=== PATIENT | male | born 1970 | race Caucasian/White ===

== ENCOUNTER 2016-11-04 20:21 | Emergency (ER) | payer OTHER ==
--- NOTE | 2016-11-04 20:55 | ED ORDER SUMMARY ---
..... Patient: CAPRICE LANCASTER OrderSheet [facility] VisitID: [id number] [address] [place] [address] 46y, M Registration Date/Time: 11/04/2016 ORDER SHEET Weight: 77.1 kg (stated) Allergies: No Known Drug Allergy GENERAL ORDERS: MEDICATION ORDERS: Bactrim DS PO (Tablet 800-160 mg) 1 tab (NOW) (20:36 11/04/2016 Eric A.R.N.P.) (Ack 20:39 Antonis R.N.) (21:06 Antonis R.N.) IV FLUIDS: ORDER SHEET NOTES: [Electronically signed by Mariposa Nicole R.N. (21:28 11/04/2016)] [Electronically signed by Sherice CastilloR.N.PDominick (21:36 11/04/2016)] [Electronically locked/signed by Mariposa Nicole R.N. (21:28 11/04/2016)]
--- NOTE | 2016-11-04 20:55 | ED CLINICAL REPORT ---
Clinical Report - Physicians/Mid Levels [facility] [address] [place] [address] 11/04/2016 20:23 Patient: CAPRICE LANCASTER Time Seen: 20:33. Arrived- By private vehicle. Historian- patient. HISTORY OF PRESENT ILLNESS Chief Complaint: TENDER AREA. This started today and is still present. It is described as painful. It has been located on the back. No cause has been identified. No recent insect bite. Similar symptoms previously: Once. Recent medical care: Not recently seen/assessed. REVIEW OF SYSTEMS No fever, chills or enlarged lymph nodes. PAST HISTORY See nurses notes. No history of hypertension or diabetes mellitus. Tetanus immunization status is up-to-date. Surgeries: Appendectomy. (R thumb). SOCIAL HISTORY Light tobacco smoker (cigarette)- less than 1/2 a pack per day. No alcohol use or drug use. ADDITIONAL NOTES The nursing notes have been reviewed. PHYSICAL EXAM Vital Signs: 11/04/2016 20:29 BP: 150/96. HR: 74. RR: 18. O2 saturation: 100%. Temp: 97.7 F. Pain level now: 3/10. Have been reviewed and appear to be correct. Appearance: Alert. Oriented X3. No acute distress. Eyes: Pupils equal, round and reactive to light. Conjunctivae and eyelids normal. Neck: Neck supple. No lymphadenopathy or meningeal signs. CVS: Normal heart rate and rhythm. Respiratory: No respiratory distress. Skin: Skin warm and dry. Normal skin color. Normal skin turgor. Single small tender indurated area with cellulitis to the back. No fluctuance, pointing or drainage. Neuro: Oriented X 3. PROGRESS AND PROCEDURES Incision & Drainage of Abscess: The abscess is located in the back. The risks of the procedure, benefits and alternatives were explained. Consent was obtained. Local anesthesia provided using 1% lidocaine with epi. Skin cleansed with Betadine. The abscess was incised with a #11 surgical blade. Cavity was irrigated with saline and packed with gauze. A dressing was applied. ( Minimal pus-more serosang drainage. Bleeding resolved w/pressure. Packed w/ 1/4" gauze. Pressure dressing applied.). Course of Care: Bactrim DSx1 Referred to surgeon in the event that this does not resolve. Patient is stable. Patient counseled in person regarding the patient's condition, diagnosis and need for follow-up. Disposition: Discharged. Condition: stable. CLINICAL IMPRESSION Cellulitis of the back. INSTRUCTIONS Do not work (Sunday). (Work note for Sunday (if needed)). Warnings: GENERAL WARNINGS: Return or contact your physician immediately if your condition worsens or changes unexpectedly, if not improving as expected, or if other problems arise. Prescription Medications: Bactrim DS 800 mg / 160 mg: take 1 tablet orally every 12 hours for 5 days. No refill. Follow-up: Follow up with a surgeon if not better. Follow up with your doctor in about two days for wound check. Understanding of the discharge instructions verbalized by patient. Follow-up with: Kyle Arthur MD, General Surgeon, , [facility], [address] [place] [address] Follow up in two days if not better. Summary of care provided to patient via paper. (Electronically signed by Sherice Castillo A.R.N.P. 11/04/2016 21:36)
--- NOTE | 2016-11-04 20:55 | ED NURSING NOTES ---
Clinical Report - Nurses [facility] [address] [place] [address] 11/04/2016 20:23 Patient: CAPRICE LANCASTER TRIAGE Triage time 20:30 Nov 04 2016. Acuity: LEVEL 4. Chief Complaint: TENDER AREA and . raised area left lateral to Cspine. 20:34 11/04/16. SEPSIS SCREEN: Sepsis Screen. Negative (no infection suspected/documented). SINDI COMA SCORE: Sindi Coma Scale: 15- eyes open spontaneously (4); best verbal response- oriented x 4 (5); best motor response- obeys commands (6). --20:34 Mariposa Nicole R.N. 20:29 11/04/16. BP: 150/96 (regular adult cuff) taken on the left arm. HR: 74. RR: 18. O2 saturation: 100% on room air. Temp: 97.7 F (oral). Pain level now: 08/11. --20:34 Mariposa Nicole R.N. Weight: 77.1 kg stated. Height/Length: 69 inches Per Patient. BMI: 25.1. --20:33 Mariposa Nicole R.N. Medications None. --20:31 Mariposa Nicole R.N. Allergies No Known Drug Allergy. --20:31 Mariposa Nicole R.N. History Arrived by private vehicle. Historian: patient. Location - upper back. This started today. It is described as itchy and burning. He has had muscle aches. Treatment RESEARCH PROGRAM INTERNSHIP: None. SOCIAL HX: Light tobacco smoker (cigarette)- less than 1/2 a pack per day. No alcohol use or drug use. No infectious disease exposure. ABUSE ASSESSMENT: No report of abuse. SELF HARM ASSESSMENT: A self harm assessment was performed. The patient answered "no" to the question "Have you recently felt down, depressed, or hopeless?", "Have you noticed less interest or pleasure in doing things?", "Do you have thoughts of harming or killing yourself?", "Are you here because you tried to hurt yourself?", "Have you ever tried to hurt yourself before today?", "Have you recently had thoughts about harming or killing others?" and "Do you have any dangerous items in your possession?". The patient reports their behavior. --20:34 Mariposa Nicole R.N. PROBLEMS: Laceration. Paresthesia. Upper Extremity Pain. --20:31 Mariposa Nicole R.N. ADDITIONAL SURGERIES: Appendectomy. Right thumb surgery . --20:31 Mariposa Nicole R.N. Interventions ID band on patient. To treatment room. --20:34 Mariposa Nicole R.N. PHYSICAL ASSESSMENT 20:34 11/04/16. Ambulatory to room. Patient gowned. GENERAL / NEURO / PSYCH: Alert. The patient does not appear to be in acute distress. Oriented X 4. HEENT: Pupils equal, round and reactive to light. Mucous membranes are pink. RESPIRATORY: Respirations not labored. Breath sounds within normal limits. CVS: Capillary refill less than 2 seconds. Pulses within normal limits. GI / : Abdomen nontender. SKIN: Skin is intact, warm and non-tender. Normal skin turgor. No skin rash. --20:34 Mariposa Nicole R.N. NURSING PROGRESS NOTES 20:34 11/04/16. The plan of care for this patient has been created. Patient gowned. Head of bed elevated. Reassurance given. Two patient identifiers checked. Call light placed in reach. Side rails up x 1. Bed placed in lowest position. Brakes of bed on. Patient ready for evaluation- chart flagged and PA notified. --20:34 Mariposa Nicole R.N. ( Lac cart set outside room, patient laying flat on stomach prepped for drainage of abcess, lido with epi at bedside.). --20:41 Mariposa Nicole R.N. ( Doctor in with patient for drainage). --20:41 Mariposa Nicole R.N. 21:06 11/04/2016 Bactrim DS (Sulfamethoxazole-TMP DS) PO Tablets 1 tab given. Allergies verified and confirmed 5 rights. --21:06 Mariposa Nicole R.N. DISPOSITION / DISCHARGE late entry - 21:09 11/04/16. Departure time: 21:10 Nov 04 2016. Condition at departure: improved. No learning barriers present. Discharge instructions provided and reviewed with the patient. Reviewed medication(s) side effects, precautions, dosing and course information. Prescription(s) given to the patient. Work note given. Written instructions provided in Setswana. The patient was discharged by the physician integration assistant. He was discharged home. He left the Emergency Department ambulatory and via private vehicle. Thickener Operator driving. --21:26 Mariposa Nicole R.N. 21:24 11/04/16. BP: 157/96 (regular adult cuff) taken on the right arm, while sitting. HR: 83. RR: 16. O2 saturation: 98% on room air. Temp: 97.7 F (oral). Pain level now: 0/10. --21:26 Mariposa Nicole R.N. Locked/Released at 11/04/2016 21:29 by Mariposa Nicole R.N.
--- NOTE | 2016-11-04 20:55 | ED CLINICAL REPORT ---
Clinical Report - Physicians/Mid Levels [facility] [address] [address] 11/04/2016 20:23 Patient: CAPRICE LANCASTER Time Seen: 20:33. Arrived- By private vehicle. Historian- patient. HISTORY OF PRESENT ILLNESS Chief Complaint: TENDER AREA. This started today and is still present. It is described as painful. It has been located on the back. No cause has been identified. No recent insect bite. Similar symptoms previously: Once. Recent medical care: Not recently seen/assessed. REVIEW OF SYSTEMS No fever, chills or enlarged lymph nodes. PAST HISTORY See nurses notes. No history of hypertension or diabetes mellitus. Tetanus immunization status is up-to-date. Surgeries: Appendectomy. (R thumb). SOCIAL HISTORY Light tobacco smoker (cigarette)- less than 1/2 a pack per day. No alcohol use or drug use. ADDITIONAL NOTES The nursing notes have been reviewed. PHYSICAL EXAM Vital Signs: 11/04/2016 20:29 BP: 150/96. HR: 74. RR: 18. O2 saturation: 100%. Temp: 97.7 F. Pain level now: 3/10. Have been reviewed and appear to be correct. Appearance: Alert. Oriented X3. No acute distress. Eyes: Pupils equal, round and reactive to light. Conjunctivae and eyelids normal. Neck: Neck supple. No lymphadenopathy or meningeal signs. CVS: Normal heart rate and rhythm. Respiratory: No respiratory distress. Skin: Skin warm and dry. Normal skin color. Normal skin turgor. Single small tender indurated area with cellulitis to the back. No fluctuance, pointing or drainage. Neuro: Oriented X 3. PROGRESS AND PROCEDURES Incision & Drainage of Abscess: The abscess is located in the back. The risks of the procedure, benefits and alternatives were explained. Consent was obtained. Local anesthesia provided using 1% lidocaine with epi. Skin cleansed with Betadine. The abscess was incised with a #11 surgical blade. Cavity was irrigated with saline and packed with gauze. A dressing was applied. ( Minimal pus-more serosang drainage. Bleeding resolved w/pressure. Packed w/ 1/4" gauze. Pressure dressing applied.). Course of Care: Bactrim DSx1 Referred to surgeon in the event that this does not resolve. Patient is stable. Patient counseled in person regarding the patient's condition, diagnosis and need for follow-up. Disposition: Discharged. Condition: stable. CLINICAL IMPRESSION Cellulitis of the back. INSTRUCTIONS Do not work (Sunday). (Work note for Sunday (if needed)). Warnings: GENERAL WARNINGS: Return or contact your physician immediately if your condition worsens or changes unexpectedly, if not improving as expected, or if other problems arise. Prescription Medications: Bactrim DS 800 mg / 160 mg: take 1 tablet orally every 12 hours for 5 days. No refill. Follow-up: Follow up with a surgeon if not better. Follow up with your doctor in about two days for wound check. Understanding of the discharge instructions verbalized by patient. Follow-up with: Kyle Arthur MD, General Surgeon, , [facility], [address] [place] [address] Follow up in two days if not better. Summary of care provided to patient via paper. (Electronically signed by Sherice Castillo A.R.N.P. 11/04/2016 21:36)
--- NOTE | 2016-11-04 20:55 | ED ORDER SUMMARY ---
..... Patient: CAPRICE LANCASTER OrderSheet [facility] VisitID: [id number] [address] [place] [address] 46y, M Registration Date/Time: 11/04/2016 ORDER SHEET Weight: 77.1 kg (stated) Allergies: No Known Drug Allergy GENERAL ORDERS: MEDICATION ORDERS: Bactrim DS PO (Tablet 800-160 mg) 1 tab (NOW) (20:36 11/04/2016 Eric A.R.N.P.) (Ack 20:39 Antonis R.N.) (21:06 Antonis R.N.) IV FLUIDS: ORDER SHEET NOTES: [Electronically signed by Mariposa Nicole R.N. (21:28 11/04/2016)] [Electronically signed by Sherice CastilloR.N.PDominick (21:36 11/04/2016)] [Electronically locked/signed by Mariposa Nicole R.N. (21:28 11/04/2016)]
--- NOTE | 2016-11-04 20:55 | ED NURSING NOTES ---
Clinical Report - Nurses [facility] [address] [place] [address] 11/04/2016 20:23 Patient: CAPRICE LANCASTER TRIAGE Triage time 20:30 Nov 04 2016. Acuity: LEVEL 4. Chief Complaint: TENDER AREA and . raised area left lateral to Cspine. 20:34 11/04/16. SEPSIS SCREEN: Sepsis Screen. Negative (no infection suspected/documented). SINDI COMA SCORE: Sindi Coma Scale: 15- eyes open spontaneously (4); best verbal response- oriented x 4 (5); best motor response- obeys commands (6). --20:34 Mariposa Nicole R.N. 20:29 11/04/16. BP: 150/96 (regular adult cuff) taken on the left arm. HR: 74. RR: 18. O2 saturation: 100% on room air. Temp: 97.7 F (oral). Pain level now: 08/11. --20:34 Mariposa Nicole R.N. Weight: 77.1 kg stated. Height/Length: 69 inches Per Patient. BMI: 25.1. --20:33 Mariposa Nicole R.N. Medications None. --20:31 Mariposa Nicole R.N. Allergies No Known Drug Allergy. --20:31 Mariposa Nicole R.N. History Arrived by private vehicle. Historian: patient. Location - upper back. This started today. It is described as itchy and burning. He has had muscle aches. Treatment FOOD ADVISER: None. SOCIAL HX: Light tobacco smoker (cigarette)- less than 1/2 a pack per day. No alcohol use or drug use. No infectious disease exposure. ABUSE ASSESSMENT: No report of abuse. SELF HARM ASSESSMENT: A self harm assessment was performed. The patient answered "no" to the question "Have you recently felt down, depressed, or hopeless?", "Have you noticed less interest or pleasure in doing things?", "Do you have thoughts of harming or killing yourself?", "Are you here because you tried to hurt yourself?", "Have you ever tried to hurt yourself before today?", "Have you recently had thoughts about harming or killing others?" and "Do you have any dangerous items in your possession?". The patient reports their behavior. --20:34 Mariposa Nicole R.N. PROBLEMS: Laceration. Paresthesia. Upper Extremity Pain. --20:31 Mariposa Nicole R.N. ADDITIONAL SURGERIES: Appendectomy. Right thumb surgery . --20:31 Mariposa Nicole R.N. Interventions ID band on patient. To treatment room. --20:34 Mariposa Nicole R.N. PHYSICAL ASSESSMENT 20:34 11/04/16. Ambulatory to room. Patient gowned. GENERAL / NEURO / PSYCH: Alert. The patient does not appear to be in acute distress. Oriented X 4. HEENT: Pupils equal, round and reactive to light. Mucous membranes are pink. RESPIRATORY: Respirations not labored. Breath sounds within normal limits. CVS: Capillary refill less than 2 seconds. Pulses within normal limits. GI / : Abdomen nontender. SKIN: Skin is intact, warm and non-tender. Normal skin turgor. No skin rash. --20:34 Mariposa Nicole R.N. NURSING PROGRESS NOTES 20:34 11/04/16. The plan of care for this patient has been created. Patient gowned. Head of bed elevated. Reassurance given. Two patient identifiers checked. Call light placed in reach. Side rails up x 1. Bed placed in lowest position. Brakes of bed on. Patient ready for evaluation- chart flagged and PA notified. --20:34 Mariposa Nicole R.N. ( Lac cart set outside room, patient laying flat on stomach prepped for drainage of abcess, lido with epi at bedside.). --20:41 Mariposa Nicole R.N. ( Doctor in with patient for drainage). --20:41 Mariposa Nicole R.N. 21:06 11/04/2016 Bactrim DS (Sulfamethoxazole-TMP DS) PO Tablets 1 tab given. Allergies verified and confirmed 5 rights. --21:06 Mariposa Nicole R.N. DISPOSITION / DISCHARGE late entry - 21:09 11/04/16. Departure time: 21:10 Nov 04 2016. Condition at departure: improved. No learning barriers present. Discharge instructions provided and reviewed with the patient. Reviewed medication(s) side effects, precautions, dosing and course information. Prescription(s) given to the patient. Work note given. Written instructions provided in Yoruba. The patient was discharged by the physician assistant professor sculpture. He was discharged home. He left the Emergency Department ambulatory and via private vehicle. Mower Mechanic driving. --21:26 Mariposa Nicole R.N. 21:24 11/04/16. BP: 157/96 (regular adult cuff) taken on the right arm, while sitting. HR: 83. RR: 16. O2 saturation: 98% on room air. Temp: 97.7 F (oral). Pain level now: 0/10. --21:26 Mariposa Nicole R.N. Locked/Released at 11/04/2016 21:29 by Mariposa Nicole R.N.
--- NOTE | 2016-11-04 21:36 | ED DISCHARGE INSTRUCTIONS ---
Patient: CAPRICE LANCASTER General Instructions [facility] VisitID: [id number] [place] [address] 46y, M Registration Date/Time: 11/04/2016 Cellulitis of the back. INSTRUCTIONS Do not work (Sunday). (Work note for Sunday (if needed)). Warnings: GENERAL WARNINGS: Return or contact your physician immediately if your condition worsens or changes unexpectedly, if not improving as expected, or if other problems arise. Prescription Medications: Bactrim DS 800 mg / 160 mg: take 1 tablet orally every 12 hours for 5 days. No refill. Follow-up: Follow up with a surgeon if not better. Follow up with your doctor in about two days for wound check. Understanding of the discharge instructions verbalized by patient. Follow-up with: Kyle Arthur MD, General Surgeon, , [facility], [address] [place] [address] Follow up in two days if not better. Summary of care provided to patient via paper. ADDITIONAL INFORMATION Cellulitis You have an infection of the skin known as cellulitis. This usually starts with a scrape, cut, insect bite, blister or other opening in the skin which becomes infected. This is a serious condition. It must be watched closely to be sure the infection is not spreading. With antibiotic treatment, the size of the red area will gradually shrink in size until the skin returns to normal. This will take 7-10 days. The red area should never increase in size once the antibiotic medicine has been started. Occasionally, an infection will be resistant to one antibiotic and another one will have to be used. Home Care: 1) Limit the use of the affected part, since excess movement can cause the infection to spread. 2) If the infection is on your leg, walk as little as possible during the first few days of the treatment. Keep your leg elevated while sitting. This will reduce swelling. 3) Take all of the antibiotic medicine exactly as directed until it is gone. Be careful not to miss any doses, especially during the first seven days. Follow Up with your doctor or this facility as directed. Check the infected area daily for the warning signs listed below. Get Prompt Medical Attention if any of the following occur: -- Spreading area of redness -- Increasing swelling or pain -- Appearance of pus or drainage -- Fever over 100.4 F (38.0 C) oral, or over 101.4 F (38.6 C) rectal, after two days on antibiotics You have been given the following additional information: Cellulitis Do not work (Sunday). (Electronically signed by Sherice Castillo A.R.N.P. 11/04/2016 21:36)
--- NOTE | 2016-11-04 21:36 | ED MAR SUMMARY ---
..... Medication Administration Record [facility] [address] [place] [address] Patient: CAPRICE LANCASTER Visit ID: [id number] 46y, M Weight: 77.1 kg Height/Length: 69 in BMI: 25.1 ALLERGIES: No Known Drug Allergy Given 21:06 11/04/2016 Mariposa Nicole R.N. Medication Administered: BACTRIM DS [PO] (SULFAMETHOXAZOLE-TMP DS), Dose: 1 tab Tablets PO. Medication Ordered: Bactrim DS PO (Tablet 800-160 mg) 1 tab (NOW).
--- NOTE | 2016-11-04 21:36 | ED MAR SUMMARY ---
..... Medication Administration Record [facility] [address] [place] [address] Patient: CAPRICE LANCASTER Visit ID: [id number] 46y, M Weight: 77.1 kg Height/Length: 69 in BMI: 25.1 ALLERGIES: No Known Drug Allergy Given 21:06 11/04/2016 Mariposa Nicole R.N. Medication Administered: BACTRIM DS [PO] (SULFAMETHOXAZOLE-TMP DS), Dose: 1 tab Tablets PO. Medication Ordered: Bactrim DS PO (Tablet 800-160 mg) 1 tab (NOW).
--- NOTE | 2016-11-04 21:36 | ED MED RECONCILIATION SUMMARY ---
Patient: CAPRICE LANCASTER Medication Reconciliation Report [facility] VisitID: [id number] [address] [place] [address] 46y, M Registration Date/Time: 11/04/2016 Weight: 77.1 kg Height/Length: 69 in. BMI: 25.1 ALLERGIES: No Known Drug Allergy The patient's Home Medications are listed below: NONE. The source(s) of the original Home Medication information: Not obtained. The following Medications were given to the patient in the Emergency Department: Bactrim DS [PO] PO 1 tab, administered: 11/04/2016 9:06:00 PM The following Medications were prescribed to the patient: Bactrim DS 800 mg / 160 mg: take 1 tablet orally every 12 hours for 5 days. No refill. -- Sherice Castillo A.R.N.P.
--- NOTE | 2016-11-04 21:36 | ED MED RECONCILIATION SUMMARY ---
Patient: CAPRICE LANCASTER Medication Reconciliation Report [facility] VisitID: [id number] [address] [place] [address] 46y, M Registration Date/Time: 11/04/2016 Weight: 77.1 kg Height/Length: 69 in. BMI: 25.1 ALLERGIES: No Known Drug Allergy The patient's Home Medications are listed below: NONE. The source(s) of the original Home Medication information: Not obtained. The following Medications were given to the patient in the Emergency Department: Bactrim DS [PO] PO 1 tab, administered: 11/04/2016 9:06:00 PM The following Medications were prescribed to the patient: Bactrim DS 800 mg / 160 mg: take 1 tablet orally every 12 hours for 5 days. No refill. -- Sherice Castillo A.R.N.P.
--- NOTE | 2016-11-04 21:36 | ED DISCHARGE INSTRUCTIONS ---
Patient: CAPRICE LANCASTER General Instructions [facility] VisitID: [id number] [place] [address] 46y, M Registration Date/Time: 11/04/2016 Cellulitis of the back. INSTRUCTIONS Do not work (Sunday). (Work note for Sunday (if needed)). Warnings: GENERAL WARNINGS: Return or contact your physician immediately if your condition worsens or changes unexpectedly, if not improving as expected, or if other problems arise. Prescription Medications: Bactrim DS 800 mg / 160 mg: take 1 tablet orally every 12 hours for 5 days. No refill. Follow-up: Follow up with a surgeon if not better. Follow up with your doctor in about two days for wound check. Understanding of the discharge instructions verbalized by patient. Follow-up with: Kyle Arthur MD, General Surgeon, , [facility], [address] [place] [address] Follow up in two days if not better. Summary of care provided to patient via paper. ADDITIONAL INFORMATION Cellulitis You have an infection of the skin known as cellulitis. This usually starts with a scrape, cut, insect bite, blister or other opening in the skin which becomes infected. This is a serious condition. It must be watched closely to be sure the infection is not spreading. With antibiotic treatment, the size of the red area will gradually shrink in size until the skin returns to normal. This will take 7-10 days. The red area should never increase in size once the antibiotic medicine has been started. Occasionally, an infection will be resistant to one antibiotic and another one will have to be used. Home Care: 1) Limit the use of the affected part, since excess movement can cause the infection to spread. 2) If the infection is on your leg, walk as little as possible during the first few days of the treatment. Keep your leg elevated while sitting. This will reduce swelling. 3) Take all of the antibiotic medicine exactly as directed until it is gone. Be careful not to miss any doses, especially during the first seven days. Follow Up with your doctor or this facility as directed. Check the infected area daily for the warning signs listed below. Get Prompt Medical Attention if any of the following occur: -- Spreading area of redness -- Increasing swelling or pain -- Appearance of pus or drainage -- Fever over 100.4 F (38.0 C) oral, or over 101.4 F (38.6 C) rectal, after two days on antibiotics You have been given the following additional information: Cellulitis Do not work (Sunday). (Electronically signed by Sherice Castillo A.R.N.P. 11/04/2016 21:36)
== END 2016-11-04 21:10 | disposition home or self-care (01) ==
LOC: ED SRH 20:21
DX: L03.312 Cellulitis of back [any part except buttock and flank] (principal); F17.210 Nicotine dependence, cigarettes, uncomplicated